=== PATIENT | female | born 1990 | race American Indian/Alaskan Native ===

== ENCOUNTER 2017-06-17 18:19 | Emergency (ER) | payer OTHER ==
[2017-06-17] MEDS ORDERED: TYLENOL ONE (20:00)
[2017-06-17] MEDS ORDERED: TYLENOL PO ONE (20:00)
--- NOTE | 2017-06-17 20:01 | Emergency Department Report ---
Blank Doc - Documentation Documentation: Patient is a 27-year-old Female is 19 weeks who fell down 3 stairs. Patient slipped backwards fell down the stairs on her buttock. Patient has bilateral groin and inguinal pain. Patient denies any vaginal bleeding at this time. Also be performed to rule out any abnormalities.
--- NOTE | 2017-06-17 20:31 | Ultrasound Report ---
FINAL REPORT EXAM: US OB > = 14 WEEKS FETUS HISTORY: Fall, pelvic pain TECHNIQUE: Standard full obstetrical ultrasound PRIORS: None. FINDINGS: LMP: 01/31/2017 clinical Age: 19 w 4 d US Age (average) = 19 w 4 d EFW (BPD,HC,AC,FL) =. 313g +/- 46g (0 lbs 11oz. +/-2oz.) LMP EDC 11/07/2017 US EDC 11/07/2017 CI 74.3 (range 74 to 83) HC/AC 1.2 (range 1.09 to 1.26) BPD 4.3 cm corresponding to age 19 weeks 0 days HC 17.2 cm corresponding to age 19 weeks 5 days AC 14.3 cm corresponding to age 19 weeks 5 days FL 3.2 cm corresponding to age 20 weeks 0 days Presentation: Cephalic Activity: Monitored Placental location: Posterior with no evidence for placenta previa or abruption Placental grade: 1 Cardiac motion: 160 BPM using M-mode doppler Amniotic Fluid Volume: Adequate Cervical Length: 3.5 cm IMPRESSION: Single intrauterine viable with an approximate age of 19 weeks 4 days. No evidence for placental abruption.
--- NOTE | 2017-06-17 21:56 | Emergency Department Report ---
ED Fall HPI - General Chief Complaint: Fall Stated Complaint: FALL Time Seen by Provider: 06/17/17 19:51 Source: patient Mode of arrival: Ambulatory - History of Present Illness Initial Comments: This is a 27-year-old female that is currently 19 weeks nontoxic, well nourished in appearance, no acute signs of distress presents to the ED with c/o of bilateral groin and pelvic pain status post fall was occurred this evening. Patient stated she was walking down the stairs and slipped down 3 stairs in R her left buttock region. Patient denies any pain to the hip or back. Patient states she has having pelvic cramping. Patient denies any vaginal bleeding, vaginal discharge, nausea, vomiting, fever, chills, chest pain, shortness of breath. 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 Patient denies any allergies or significant past medical history. MD Complaint: fall -: This afternoon Place Fall Occurred: home Loss of Consciousness: none Prolonged Down Time?: no Symptoms Prior to Fall: none Severity: mild Severity scale (0 -10): 4 Quality: other (cramping) Context: tripped/slipped Associated Symptoms: abdominal pain (pelvic ). denies: headache, neck pain, numbness, weakness, chest paint, shortness of breath, lightheaded, vertigo, confusion - Related Data Previous Rx's Medication Instructions Recorded Last Taken Type Acetaminophen [8Hr Arthritis Pain] 650 mg PO Q8H PRN #30 tablet.er 06/17/17 Unknown Rx Allergies Allergy/AdvReac Type Severity Reaction Status Date / Time No Known Allergies Allergy Unverified 06/17/17 18:30 ED Review of Systems ROS: Stated complaint: FALL Other details as noted in HPI Constitutional: denies: chills, fever Eyes: denies: eye pain, eye discharge, vision change ENT: denies: ear pain, throat pain Respiratory: denies: cough, shortness of breath, wheezing Cardiovascular: denies: chest pain, palpitations Endocrine: no symptoms reported Gastrointestinal: abdominal pain (cramping). denies: nausea, diarrhea Genitourinary: denies: urgency, dysuria, discharge Musculoskeletal: denies: back pain, joint swelling, arthralgia Skin: denies: rash, lesions Neurological: denies: headache, weakness, paresthesias Psychiatric: denies: anxiety, depression Hematological/Lymphatic: denies: easy bleeding, easy bruising ED Past Medical Hx - Past Medical History Previous Medical History?: No - Surgical History Past Surgical History?: No - Social History Smoking Status: Never Smoker Substance Use Type: None - Medications Home Medications: Home Medications Medication Instructions Recorded Confirmed Last Taken Type Acetaminophen [8Hr Arthritis Pain] 650 mg PO Q8H PRN #30 tablet.er 06/17/17 Unknown Rx ED Physical Exam - General Limitations: No Limitations General appearance: alert, in no apparent distress - Head Head exam: Present: atraumatic, normocephalic - Eye Eye exam: Present: normal appearance - ENT ENT exam: Present: mucous membranes moist - Neck Neck exam: Present: normal inspection, full ROM - Respiratory Respiratory exam: Present: normal lung sounds bilaterally. Absent: respiratory distress, wheezes, rales, rhonchi, stridor, chest wall tenderness, accessory muscle use, decreased breath sounds, prolonged expiratory - Cardiovascular Cardiovascular Exam: Present: regular rate, normal rhythm, normal heart sounds. Absent: irregular rhythm, systolic murmur, diastolic murmur, rubs, gallop - GI/Abdominal GI/Abdominal exam: Present: soft, normal bowel sounds, other. Absent: distended , tenderness, guarding, rebound, rigid, diminished bowel sounds - Extremities Exam Extremities exam: Present: normal inspection, full ROM, normal capillary refill. Absent: tenderness, pedal edema, joint swelling, calf tenderness - Back Exam Back exam: Present: normal inspection, full ROM. Absent: tenderness, CVA tenderness (R), CVA tenderness (L), muscle spasm, paraspinal tenderness, vertebral tenderness, rash noted - Neurological Exam Neurological exam: Present: alert, oriented X3, CN II-XII intact, normal gait, reflexes normal - Psychiatric Psychiatric exam: Present: normal affect, normal mood - Skin Skin exam: Present: warm, dry, intact, normal color. Absent: rash ED Course Vital Signs 06/17/17 18:21 Temperature 98.6 F Pulse Rate 98 H Respiratory 16 Rate Blood Pressure 111/76 O2 Sat by Pulse 99 Oximetry - Reevaluation(s) Reevaluation #1: 06/17/17 21:55 Patient is speaking in full sentences with no signs of distress noted. - Consultations Consultation #1: 06/17/17 21:55 Patient has been consulted with Dr. Alston about patient history, physical exam , and labs and examined and screened patient and agrees to ED plan of care and discharge plan of care. ED Medical Decision Making - Medical Decision Making this is a 27-year-old female that presents with a fall. Patient is stable and was examined by me. OB Ultrasound has been obtained and dictated by radiologist within normal limits. Patient is notified of THE report with no questionable by the patient. Patient denies any vaginal bleeding. Patient stated that symptoms of pelvic cramping has subsided after taking Tylenol was provided to her in the ED. Patient discharged with Tylenol. 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 At time of discharge, the patient does not seem toxic or ill in appearance. No acute signs of distress noted. Patient agrees to discharge treatment plan of care. No further questions noted by the patient. Critical care attestation.: If time is entered above; I have spent that time in minutes in the direct care of this critically ill patient, excluding procedure time. ED Disposition Clinical Impression: Fall Qualifiers: Encounter type: initial encounter Qualified Code(s): W19.XXXA - Unspecified fall, initial encounter Disposition: DC-01 TO HOME OR SELFCARE Is pt being admited?: No Does the pt Need Aspirin: No Condition: Stable Instructions: Fall Prevention (ED) Additional Instructions: Follow-up with a primary care/[facility]-[employer] [facility] WORK[facility] doctor in 3-5 days or if symptoms worsen and continue return to emergency room as soon as possible. Prescriptions: Acetaminophen [8Hr Arthritis Pain] 650 mg PO Q8H PRN #30 tablet.er PRN Reason: Pain Referrals: NIXON PANDEY MD [Primary Care Provider] - 3-5 Days SELINA HARLEY MD [Staff Physician] - 3-5 Days [facility] [Outside] - 3-5 Days [facility] [Outside] - 3-5 Days Forms: Work/School Release Form(ED)
[2017-06-17 22:07] VITALS: BP 126/83
== END 2017-06-17 22:12 | disposition home or self-care (01) ==
LOC: ED 18:19
DX: O9A.212 Injury, poisoning and certain other consequences of external causes complicating pregnancy, second trimester (principal); Z3A.19 19 weeks gestation of pregnancy; W19.XXXA Unspecified fall, initial encounter; Y93.89 Activity, other specified; Y92.89 Other specified places as the place of occurrence of the external cause; Y99.8 Other external cause status
CPT/HCPCS: 76805; 99283

== ENCOUNTER 2017-08-08 21:49 | Outpatient (CLI) | payer OTHER ==
[2017-08-08] MEDS ORDERED: LACTATED RINGERS 1,000 ML IV ONE (22:33)
[2017-08-08 23:15] LABS: Bacteria,Urine 1+ /HPF (Negative); Bilirubin,Urine NEG (Negative); Blood,Urine NEG (Negative); Color,Urine Yellow (Yellow); Mucus,Urine FEW /HPF; Protein,Urine <15 mg/dL mg/dL (Negative)
[2017-08-08 23:18] VITALS: BP 100/53
--- NOTE | 2017-08-09 00:32 | Ultrasound Report ---
FINAL REPORT EXAM: US OB FOLLOW UP HISTORY: Rule out abruption. Vaginal bleeding. TECHNIQUE: Directed transabdominal ultrasound examination of the pelvis was performed. Comparison is made with prior study 06/17/2017. FINDINGS: There is a single intrauterine gestation, with cephalic presentation. The placenta is located posteriorly, grade I. There is no placenta previa or evidence of abruption. The cervical length measures 3.3 cm, within normal limits. The BPD measures 6.5 cm, corresponding to 26 weeks, 2 days. The HC measures 24.8 cm, corresponding to 26 weeks, 6 days. The AC measures 23.3 cm, corresponding to 27 weeks 4 days. The femur length measures 5.1 cm, corresponding to 27 weeks, 1 day. There is an average ultrasound age of 27 weeks, 0 days (estimated due date 11/07/2017). This indicates appropriate interval growth compared to prior exam. The amniotic fluid index measures 9.75 cm, within normal limits. IMPRESSION: 1. Single live intrauterine gestation, with average ultrasound age of 27 weeks, 0 days. 2. No evidence of placenta previa or abruption.
== END 2017-08-09 00:37 | disposition home or self-care (01) ==
LOC: TRG 21:49
PROVIDERS: ATTEND Obstetrics & Gynecology
DX: O47.02 False labor before 37 completed weeks of gestation, second trimester (principal); Z3A.27 27 weeks gestation of pregnancy
CPT/HCPCS: 76816; 81001

== ENCOUNTER 2017-10-22 07:43 | Inpatient (IN) | payer OTHER ==
[2017-10-22] MEDS ORDERED: MINERAL OIL PO PRN ×2 (11:14→11:17)
[2017-10-22] MEDS ORDERED: ePHEDrine SULFATE IV PRN ×3 (11:14→14:56)
[2017-10-22] MEDS ORDERED: STADOL IV PRN ×2 (11:14→11:17)
[2017-10-22] MEDS ORDERED: ZOFRAN IV PRN ×2 (11:14→15:47)
[2017-10-22] MEDS ORDERED: BRETHINE IVP PRN ×2 (11:14→11:17)
[2017-10-22] MEDS ORDERED: NARCAN 0.4 MG/1 ML IV PRN (11:14)
[2017-10-22] MEDS ORDERED: BRETHINE SUB-Q PRN ×2 (11:14→11:17)
[2017-10-22] MEDS ORDERED: XYLOCAINE 2% INFILTRATI ONE ×2 (11:14→11:17)
--- NOTE | 2017-10-22 11:20 | History and Physical Report ---
History of Present Illness Date of examination: 10/22/17 Date of admission: 10/22/2017 Chief complaint: Intense labor pains History of present illness: 27 yo AA Fe , MARELE 11/08/2017 (LMP) O positive, Rubella Immune, GBS pending, presents in spontaneous labor. Pt initiated early care with [employer] [employer] [facility]. Co-managed with [facility] for MO, smoking, FHx Sarcoidosis, at 36 wks and hx of PIH. 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 denies: abnormal PAP smear, chlamydia, gonorrhea, hepatitis B, hepatitis C, HIV, syphilis, trichomonas Family/Genetic History: other (Sarcoidosis) Social history: no significant social history, single, lives with family, smoking (decreased to 1-2 cig/day), full code. denies: alcohol abuse, prescription drug abuse, IV drug use - Obstetrical History Expected Date of Delivery: 11/08/17 Actual Gestation: 37 Week(s) 4 Day(s) : 4 Para: 2 Hx # Term Pregnancies: 2 Number of Pregnancies: 0 Spontaneous Abortions: 1 Induced : 0 Number of Living Children: 2 Medications and Allergies Allergies Allergy/AdvReac Type Severity Reaction Status Date / Time No Known Allergies Allergy Verified 10/22/17 08:03 Home Medications Medication Instructions Recorded Confirmed Last Taken Type Iron 1 tab PO 08/08/17 Unknown History Review of Systems Eyes: normal appearance Cardiovascular: no chest pain, no shortness of breath Respiratory: no shortness of breath Breasts: normal Gastrointestinal: no abdominal pain, no nausea, no vomiting, no diarrhea, no constipation Genitourinary: normal appearance, contractions, no vaginal bleeding, no leakage of fluid, no dysuria, no pelvic pain, no genital sores Integumentary: no rash, no sores, no lesions - Vital Signs Vital signs: Vital Signs Pulse BP 71 118/82 10/22/17 08:09 10/22/17 08:09 Temp Pulse Resp BP Pulse Ox 97.9 F 71 18 118/82 10/22/17 08:13 10/22/17 08:13 10/22/17 08:13 10/22/17 08:13 - Physical Exam Breasts: Positive: normal Cardiovascular: Regular rate, Normal S1, Normal S2 Lungs: Positive: Clear to auscultation, Normal air movement Abdomen: Positive: normal appearance, soft, normal bowel sounds Genitourinary (Female): Positive: normal external genitalia, normal perenium Vulva: both: normal Vagina: Positive: normal moisture Uterus: Positive: enlarged (gravid) Anus/Rectum: Positive: normal perianal skin Extremities: Positive: normal Deep Tendon Reflex Grade: Normal +2 - Obstetrical FHR: category 1 Uterine Contraction Monitor Mode: External Cervical Dilatation: 6 Uterine Contraction Frequency (min): 2-5 Uterine Contraction Duration: 60-120 Uterine Contraction Pattern: Regular Uterine Tone Measurement Phase: Resting Uterine Contraction Intensity: Moderate Results All other labs normal. Assessment and Plan A: Term IUP 37w 4d Active labor P: Admit to L&D Routine labor orders Anticipate
[2017-10-22] MEDS ORDERED: PITOCin/NS 20 UNIT/1000ML DRIP 20 UNITS/1,000 ML BAG IV SCH ×2 (12:00)
[2017-10-22] MEDS ORDERED: LACTATED RINGERS 1,000 ML IV SCH ×2 (12:00)
[2017-10-22 12:20] LABS: Hematocrit 37.5 % (30.3-42.9); Hemoglobin 12.3 gm/dl (10.1-14.3); Mean Corpuscular HGB Conc 33 % (30-34); Mean Corpuscular Hemoglobin 27 pg (28-32); Mean Corpuscular Volume 82 fl (79-97); Red Blood Count 4.55 M/mm3 (3.65-5.03); Red Cell Distribution Width 14.1 % (13.2-15.2)
[2017-10-22 12:59] LABS: Platelet Count 127 K/mm3 (140-440)
[2017-10-22] MEDS ORDERED: NARCAN 2 MG/2 ML IV PRN (14:56)
--- NOTE | 2017-10-22 14:56 | Anesthesia Consultation ---
Anesthesia Consult and Med Hx Date of service: 10/22/17 - Airway Anesthetic Teeth Evaluation: Good ROM Head & Neck: Adequate Mental/Hyoid Distance: Adequate Mallampati Class: Class II Intubation Access Assessment: Probably Good - Pre-Operative Health Status ASA Pre-Surgery Classification: ASA2 Proposed Anesthetic Plan: Epidural, Spinal - Pulmonary Hx Asthma: No COPD: No Hx Pneumonia: No - Cardiovascular System Hx Hypertension: No - Central Nervous System Hx Seizures: No Hx Psychiatric Problems: No - Endocrine Hx Renal Disease: No Hx End Stage Renal Disease: No Hx Hypothyroidism: No Hx Hyperthyroidism: No - Hematic Hx Anemia: No Hx Sickle Cell Disease: No - Other Systems Hx Alcohol Use: Yes (socially)
[2017-10-22] MEDS ORDERED: fentaNYL-BUPIV 2 MCG/ML-0.125% 200 MCG/100 ML BAG EPIDURAL SCH (15:00)
[2017-10-22] MEDS ORDERED: DULCOLAX PR PRN (15:47)
[2017-10-22] MEDS ORDERED: LANSINOH TP PRN (15:47)
[2017-10-22] MEDS ORDERED: TUCKS PAD TP PRN (15:47)
[2017-10-22] MEDS ORDERED: PHENERGAN PO PRN (15:47)
[2017-10-22] MEDS ORDERED: TYLENOL PO PRN (15:47)
[2017-10-22] MEDS ORDERED: BENADRYL PO PRN (15:47)
[2017-10-22] MEDS ORDERED: MILK OF MAGNESIA PO PRN (15:47)
--- NOTE | 2017-10-22 15:54 | Procedure Note ---
OB Delivery Note - Delivery Date of Delivery: 10/22/17 (15:27) Surgeon: ISIDORO KAUR (JAVI) Estimated blood loss: 100cc - Vaginal Delivery presentation: vertex Delivery position: OA Intrapartum events: none Delivery induction: none Delivery augmentation: rupture of membranes, pitocin Delivery monitor: external FHT, external uterine Route of delivery: (15:27) Delivery placenta: spontaneous (15:31) Delivery cord: nuchal cord (x1 loose) Episiotomy: none Delivery laceration: none Anesthesia: epidural Delivery comments: viable female infant at 15:27, MICHELLE position, loose nucal cord x1, delivered intact via somersault maneuver over intact perineum. Cord clamped and cut immediately, to prewarmed RW for assessment by NICU and RT present for meconium stained fluid. Cord blood collected per protocol. Spontaneous head delivery of intact placenta at 15: 31. FF@U -2, scant lochia. No tears or lacerations. and mother left in stable condition in L&D. EBL 100ML. - Infant A at 1 minute: 8 at 5 minutes: 9 Gender: Female (2693grams, 5lbs 15oz, 19")
[2017-10-22] MEDS ORDERED: SODIUM CHLORIDE FLUSH SYRINGE 10 ML IV NR (16:00)
[2017-10-22] MEDS: MOTRIN PO SCH (20:31)
[2017-10-22] MEDS: NORCO 5/325 PO PRN (20:32)
[2017-10-23] MEDS: MOTRIN PO SCH ×3 (01:29→18:10)
[2017-10-23] MEDS: NORCO 5/325 PO PRN ×4 (01:32→20:22)
[2017-10-23 02:42] LABS: Hematocrit 31.8 % (30.3-42.9); Hemoglobin 10.5 gm/dl (10.1-14.3)
--- NOTE | 2017-10-23 09:42 | Progress Note ---
Assessment and Plan - Patient Problems (1) Status post normal vaginal delivery Current Visit: Yes Status: Acute Plan to address problem: PPD 1 Pain poorly controlled Continue routine PP orders Encouraged ambulation, as tolerated Anticipate discharge in 24-48 hours Subjective - Subjective Date of service: 10/23/17 Principal diagnosis: s/p , PPD 1 Patient reports: appetite normal, voiding normally, pain poorly controlled, ambulating normally, no bowel movement : doing well, nursing well, other (baby still hasn't had a bowel movement so planning to also do bottle feeding) Objective - Vital Signs Latest vital signs: Vital Signs Temp Pulse Resp BP BP Pulse Ox 10/23/17 08:32 98.0 F 69 20 116/79 99 10/23/17 02:17 98.6 F 72 20 116/78 98 10/22/17 19:04 97.9 F 77 20 114/74 10/22/17 17:35 64 125/66 10/22/17 17:20 85 134/84 10/22/17 17:05 71 126/76 10/22/17 16:20 66 134/80 10/22/17 16:05 74 131/62 10/22/17 15:50 67 120/64 10/22/17 15:31 67 130/62 100 10/22/17 15:26 73 138/79 100 10/22/17 15:21 70 100 10/22/17 15:20 67 142/68 10/22/17 15:17 83 143/94 10/22/17 15:16 106 H 100 10/22/17 15:12 87 140/81 10/22/17 15:11 79 98 10/22/17 15:09 71 133/78 10/22/17 15:06 66 98 10/22/17 15:05 65 114/67 10/22/17 15:01 65 100 10/22/17 13:30 62 136/93 Intake and Output 10/22/17 10/23/17 10/23/17 23:59 07:59 15:59 Output Total 900 400 Balance -900 -400 Output: Urine 900 400 Void 900 400 Other: Total, Output Amount 900 400 Estimated Blood Loss 100 - Exam Breasts: Present: normal Cardiovascular: Present: Regular rate Abdomen: Present: normal appearance, soft Vulva: both: normal Uterus: Present: normal, firm, fundal height at umbilicus Extremities: Present: normal - Labs Labs: Abnormal lab results 10/22/17 Range/Units 10:30 MCH 27 L (28-32) pg Plt Count 127 L (140-440) K/mm3
[2017-10-24] MEDS: MOTRIN PO SCH ×4 (00:16→15:12)
[2017-10-24] MEDS: NORCO 5/325 PO PRN ×2 (03:38→15:13)
--- NOTE | 2017-10-24 11:12 | Progress Note ---
Assessment and Plan A: day 2. Anemia. P: Discharge patient home today. Advised pt. to continue taking her vitamins and iron supplements at home. Discussed with pt. discharge instructions and warning signs. Advised pt. to avoid IC. Advised pt. to avoid lifting, avoid heavy housework, avoid driving. Advised patient to follow up at [facility] [facility]ETING [facility]NA[facility] office in 6 weeks. Pt. voiced understanding of all instructions. Subjective - Subjective Date of service: 10/24/17 Principal diagnosis: s/p , PPD 2 Interval history: day 2 S/P . Doing well. Pt. desires discharge. Bottlefeeding. Patient reports small amount of lochia. Voiding without difficulty. Tolerating a regular diet without nausea or vomiting. Ambulating well. Patient denies headache, chest pain, cough, shortness of breath, abdominal pain , leg pain, heavy vaginal bleeding, symptoms of depression, or any other problems. Patient plans to use OCPs for control at 6-8 weeks . Patient reports: appetite normal, voiding normally, pain well controlled, flatus , ambulating normally : doing well Objective - Vital Signs Latest vital signs: Vital Signs Temp Pulse Resp BP Pulse Ox 10/24/17 08:14 98.3 F 53 L 20 118/69 98 10/23/17 23:07 98.1 F 58 L 20 117/71 99 10/23/17 16:28 98.2 F 20 112/79 10/23/17 15:53 20 Intake and Output 10/23/17 10/24/17 10/24/17 23:59 07:59 15:59 Intake Total 1060 Balance 1060 Intake: Oral 700 Intake, Free Water 360 Other: Voiding Method Toilet # Voids 4 - Exam Cardiovascular: Present: Regular rate, Normal S1, Normal S2 Lungs: Present: Clear to auscultation Abdomen: Present: normal appearance, soft, normal bowel sounds, abnormal bowel sounds. Absent: distention, tenderness, guarding, rigidity Uterus: Present: normal, firm, fundal height below umbilicus. Absent: bogginess , tenderness Extremities: Present: normal. Absent: tenderness, edema
--- NOTE | 2017-10-24 12:00 | Discharge Summary ---
Providers - Providers Date of Admission: 10/22/17 12:50 Date of discharge: 10/24/17 Attending physician: REGGIE MORSE MD None Primary care physician: REGGIE MORSE MD Hospitalization Reason for admission: active labor Delivery: Episiotomy: none Laceration: none Incision: normal Other procedures: none complications: none Discharge diagnosis: IUP at term delivered baby: female Pertinent studies: Labs Hospital course: Normal hospital course Condition at discharge: Good Disposition: DC-01 TO HOME OR SELFCARE - Discharge Diagnoses (1) Status post normal vaginal delivery Status: Acute Plan - Provider Discharge Summary Activity: routine, no sex for 6 weeks, no heavy lifting 4 weeks, no strenuous exercise Diet: routine Instructions: routine Additional instructions: Call your doctor immediately for: * Fever > 100.5 * Heavy vaginal bleeding ( >1 pad per hour) * Severe persistent headache * Shortness of breath * Reddened, hot, painful area to leg or breast - Follow up plan Follow up: REGGIE MORSE MD [Primary Care Provider] - 6 Weeks Forms: [facility] Discharge Summary
[2017-10-24 17:37] VITALS: BP 126/77
== END 2017-10-24 21:30 | disposition home or self-care (01) | DRG 774 ==
LOC: TRG 07:43 → LD 12:50 → OB 18:44
PROVIDERS: ADMIT Obstetrics & Gynecology; ATTEND Obstetrics & Gynecology
PROC: 10E0XZZ Delivery of Products of Conception, External Approach (ICD-10-PCS; principal; 2017-10-22)
PROC: 3E0R3BZ Introduction of Anesthetic Agent into Spinal Canal, Percutaneous Approach (ICD-10-PCS; 2017-10-22)
PROC: 00HU33Z Insertion of Infusion Device into Spinal Canal, Percutaneous Approach (ICD-10-PCS; 2017-10-22)
DX: O69.81X0 Labor and delivery complicated by cord around neck, without compression, not applicable or unspecified (principal); O98.32 Other infections with a predominantly sexual mode of transmission complicating childbirth; Z3A.37 37 weeks gestation of pregnancy; Z37.0 Single live birth; O99.02 Anemia complicating childbirth; D64.9 Anemia, unspecified; O99.214 Obesity complicating childbirth; E66.01 Morbid (severe) obesity due to excess calories; Z68.35 Body mass index [BMI] 35.0-35.9, adult; A60.00 Herpesviral infection of urogenital system, unspecified
CPT/HCPCS: 36415; 59025; 85014; 85018; 85027; 86592; 86850; 86900; 86901; A6250; J0595; J2590; J7120